=== PATIENT | male | born 1965 | race American Indian/Alaskan Native ===

== ENCOUNTER 2017-10-11 18:42 | Inpatient (IN) | payer OTHER ==
[2017-10-11] MEDS ORDERED: NACL 0.9% 1000 ML 1,000 ML IV ONE (20:42)
[2017-10-11 21:59] LABS: Hemoglobin 15.2 gm/dl (10.1-14.3); Mean Corpuscular HGB Conc 35 % (30-34); Mean Corpuscular Volume 73 fl (79-97); Platelet Count 142 K/mm3 (140-440); Red Cell Distribution Width 15.9 % (13.2-15.2)
[2017-10-11 22:02] LABS: Mean Corpuscular Hemoglobin 25 pg (28-32)
[2017-10-11 22:22] LABS: Alanine Aminotransferase 28 units/L (7-56); Albumin 3.5 g/dL (3.9-5); Bilirubin,Direct < 0.2 mg/dL (0-0.2)
--- NOTE | 2017-10-11 22:23 | Emergency Department Report ---
- General Chief Complaint: Dyspnea/Respdistress Stated Complaint: PNEUMONIA Time Seen by Provider: 10/11/17 20:35 Source: EMS Mode of arrival: Stretcher Limitations: No Limitations - History of Present Illness Initial Comments: 52 year old male with a past medical history of tobacco use (denies a history of hypertension, GERD, or diabetes) presents to the hospital, a [place] outpatient clinic with a diagnosis of bilateral pneumonia and hyponatremia. Patient has been sick for the past 4 days. He's been experiencing cough is mostly dry, nausea, diarrhea, any fever at home of 100.2. Intermittent shortness of breath for the past 2 days reported. Patient was seen at a outpatient [place] clinic prior to arrival. He has a chest x-ray PA and lateral with an official read of bilateral pneumonia. Lab work was significant for hyponatremia with a sodium of 125, potassium 3.5, chloride 95, CO2 19, glucose 152, creatinine 1.3, BUN 24, calcium 8.7. Patient's ABC callus 7.8, hemoglobin 16.7. The troponin of 0.040 with a normal value being less than 0.04. Patient does complain of intermittent mid chest pain that occurs even when he is not coughing and is described as aching. Patient has had frequent episodes of diarrhea in the ED. Prior to arrival patient received Levaquin 750 mg IV, Tylenol, Zofran, and 1 L of Lactated Ringer's. EKG shows sinus tachycardia rate [address] elevation or T-wave inversions. - Related Data Home Medications Medication Instructions Recorded Confirmed Last Taken No Known Home Medications [No 10/11/17 10/11/17 Unknown Reported Home Medications] Allergies Allergy/AdvReac Type Severity Reaction Status Date / Time shrimp Allergy Unknown Verified 10/11/17 20:25 lisinopril AdvReac Unknown Verified 10/11/17 20:25 ED Review of Systems ROS: Stated complaint: PNEUMONIA Other details as noted in HPI Comment: All other systems reviewed and negative Other: Constitutional: as per hpi Eyes: No eye pain visual changes or discharge ENT: No ear pain or throat pain Neck: Denies pain Respiratory: as per hpi Cardiovascular: Denies chest pain, palpitations, syncope GI: Denies abdominal pain : Denies dysuria Musculoskeletal: Denies back pain, joint swelling Skin: Denies rash, lesions, erythema Neurologic: Denies headache, numbness, weakness Psychiatric: Denies suicidal ideation, hallucinations ED Past Medical Hx - Past Medical History Previous Medical History?: Yes Hx Hypertension: No (no resolved) Hx Diabetes: No (prediabetes now resolved) Hx GERD: No (resolved) - Surgical History Past Surgical History?: No - Social History Smoking Status: Never Smoker - Medications Home Medications: Home Medications Medication Instructions Recorded Confirmed Last Taken Type No Known Home Medications [No 10/11/17 10/11/17 Unknown History Reported Home Medications] ED Physical Exam - General Limitations: No Limitations - Other Other exam information: General: No limitations, patient is alert in no acute distress Head exam: Atraumatic, normocephalic Eyes exam: Normal appearance ENT: Moist mucous membrane Neck exam: Normal inspection, full range of motion, no meningismus nontender Respiratory exam: Mild bibasilar crackles, no wheezes, rales, or tachypnea Cardiovascular: Normal rate and rhythm, normal heart sounds Abdomen: Soft, nondistended, and nontender, with normal bowel sounds, no rebound, or guarding Extremity: Full range of motion normal inspection no deformity Back: Normal Inspection, full range of motion, no tenderness Neurologic: Alert, oriented x3, cranial nerves intact, no motor or sensory deficit Psychiatric: normal affect, normal mood Skin: Warm, dry, intact ED Course Vital Signs 10/11/17 10/11/17 10/11/17 20:14 20:20 22:07 Temperature 99.3 F 99.8 F H Pulse Rate 103 H 103 H 105 H Respiratory 22 18 Rate Blood Pressure 138/88 Blood Pressure 138/88 118/74 [Right] O2 Sat by Pulse 90 90 90 Oximetry - Reevaluation(s) Reevaluation #1: 10/11/17 22:43 Patient requires supplemental oxygenation for resting hypoxia - Consultations Consultation #1: 10/11/17 22:43 Case discussed with [place] physician Dr. Hunter approved admission here to the hospital ED Medical Decision Making - Lab Data Result diagrams: 10/11/17 21:30 10/11/17 21:30 Lab Results 10/11/17 10/11/17 10/11/17 Range/Units 21:30 21:30 21:30 WBC 5.5 (4.5-11.0) K/mm3 RBC 6.00 H (3.65-5.03) M/mm3 Hgb 15.2 H (10.1-14.3) gm/dl Hct 44.0 H (30.3-42.9) % MCV 73 L (79-97) fl MCH 25 L (28-32) pg MCHC 35 H (30-34) % RDW 15.9 H (13.2-15.2) % Plt Count 142 (140-440) K/mm3 Sodium 127 L (137-145) mmol/L Potassium 3.9 (3.6-5.0) mmol/L Chloride 91.4 L (98-107) mmol/L Carbon Dioxide 19 L (22-30) mmol/L Anion Gap 21 mmol/L BUN 26 H (7-17) mg/dL Creatinine 1.3 H (0.7-1.2) mg/dL Estimated GFR 52 ml/min BUN/Creatinine Ratio 20 % Glucose 110 H (65-100) mg/dL Lactic Acid 1.70 (0.7-2.0) mmol/L Calcium 8.0 L (8.4-10.2) mg/dL Magnesium (1.7-2.3) mg/dL Total Bilirubin (0.1-1.2) mg/dL Direct Bilirubin (0-0.2) mg/dL Indirect Bilirubin mg/dL AST (5-40) units/L ALT (7-56) units/L Alkaline Phosphatase (35-129) units/L Total Protein (6.3-8.2) g/dL Albumin (3.9-5) g/dL Albumin/Globulin Ratio % 10/11/17 Range/Units 21:30 WBC (4.5-11.0) K/mm3 RBC (3.65-5.03) M/mm3 Hgb (10.1-14.3) gm/dl Hct (30.3-42.9) % MCV (79-97) fl MCH (28-32) pg MCHC (30-34) % RDW (13.2-15.2) % Plt Count (140-440) K/mm3 Sodium (137-145) mmol/L Potassium (3.6-5.0) mmol/L Chloride (98-107) mmol/L Carbon Dioxide (22-30) mmol/L Anion Gap mmol/L BUN (7-17) mg/dL Creatinine (0.7-1.2) mg/dL Estimated GFR ml/min BUN/Creatinine Ratio % Glucose (65-100) mg/dL Lactic Acid (0.7-2.0) mmol/L Calcium (8.4-10.2) mg/dL Magnesium 1.90 (1.7-2.3) mg/dL Total Bilirubin 0.80 (0.1-1.2) mg/dL Direct Bilirubin < 0.2 (0-0.2) mg/dL Indirect Bilirubin 0.6 mg/dL AST 39 (5-40) units/L ALT 28 (7-56) units/L Alkaline Phosphatase 55 (35-129) units/L Total Protein 7.4 (6.3-8.2) g/dL Albumin 3.5 L (3.9-5) g/dL Albumin/Globulin Ratio 0.9 % - EKG Data -: EKG Interpreted by Me EKG shows normal: sinus rhythm (93), axis (58), QRS complexes (98), ST-T waves ( flat lat t waves) Rate: normal - Radiology Data Radiology results: image reviewed (read by me: cxr: b/l infiltrate) - Medical Decision Making bilateral pneumonia Mild hypoxia room air saturation 89- 90% Supplemental oxygen initiated Levaquin given prior to arrival Blood cultures pending Influenza neg Hyponatremia Some correction compared to initial sodium with after IV fluid Normal saline continued - Differential Diagnosis pneumonia, bronchitis, viral syndrome, influenza, RI Critical Care Time: No Critical care attestation.: If time is entered above; I have spent that time in minutes in the direct care of this critically ill patient, excluding procedure time. ED Disposition Clinical Impression: Bilateral pneumonia, Hyponatremia, Hypoxia, Acute diarrhea, Chest pain Disposition: OP ADMIT IP TO THIS HOSP Is pt being admited?: Yes Condition: Stable Time of Disposition: 22:44 (Dr Griffiths/hosp)
[2017-10-11] MEDS ORDERED: NORCO 5/325 PO ONE (22:28)
--- NOTE | 2017-10-11 22:33 | XRay Report ---
FINAL REPORT PROCEDURE: AP chest x-ray TECHNIQUE: Chest radiograph anteroposterior view. CPT 23084 HISTORY: cough, fever COMPARISON: No prior studies are available for comparison. FINDINGS: Heart: Magnified due to projection although appears to be normal size.. Mediastinum/Vessels: Normal. Lungs/Pleural space: There are patchy and strandy densities in the left lung base suggesting atelectasis or pneumonia. Ill-defined parenchymal density seen in the left midlung field projecting laterally as well as a small amount of patchy alveolar density lateral to the right hilum and in the right lateral costophrenic angle.. There appears to be a small calcified granuloma adjacent to the left lateral costophrenic angle. Bony thorax: No acute osseous abnormality. Life support devices: None. IMPRESSION: Alveolar densities visualized bilaterally suggesting multifocal infiltrates. No effusions are identified. Follow-up chest x-ray recommended to ensure these resolve and there are no underlying pulmonary nodules or masses..
[2017-10-11] MEDS ORDERED: PROVENTIL IH PRN (23:38)
[2017-10-11] MEDS ORDERED: ZOFRAN IV PRN (23:38)
[2017-10-11] MEDS ORDERED: DULCOLAX PR PRN (23:38)
[2017-10-11] MEDS ORDERED: PERCOCET 5/325 PO PRN (23:38)
[2017-10-11] MEDS ORDERED: TYLENOL PO PRN (23:38)
[2017-10-11] MEDS ORDERED: MILK OF MAGNESIA PO PRN (23:38)
--- NOTE | 2017-10-11 23:40 | History and Physical Report ---
History of Present Illness Date of examination: 10/11/17 History of present illness: 52 year old man, tobacco abuse was sent to the emergency room from [place] for treatment of pneumonia. The patient states breath since Wednesday, no cough, admits to fever and chills. Also complained of chest pain across his chest, sharp, intermittent in nature lasted for 1 minute, intensity 5-10, no radiation , no exacerbating or relieving factors. stress test 3 years ago Review Of Systems: Constitutional: no weight loss Ears, eyes, nose, mouth and throat: no nasal congestion, no nasal discharge, no sinus pressure, blurry vision, diplopia Neck: No neck pain or rigidity. Cardiovascular: No palpitations Respiratory: + shortness of breath, cough Gastrointestinal: No abdominal pain, hematochezia Genitourinary : no dysuria, frequency , hematuria Musculoskeletal: no muscle ache Integumentary: no rash, no pruritis Neurological: no parathesias, focal weakness Endocrine: no cold or heat intolerance, no polyuria or polydipsia Hematologic/Lymphatic: no easy bruising, no easy bleeding, no gland swelling Allergic/Immunologic: no urticaria, no angioedema. PAST MEDICAL HISTORY:none PAST SURGICAL HISTORY:hernia repair FAMILY HISTORY:hypertension SOCIAL HISTORY: Smokes a pack a day, social alcohol no drugs Medications and Allergies Allergies Allergy/AdvReac Type Severity Reaction Status Date / Time shrimp Allergy Unknown Verified 10/11/17 20:25 lisinopril AdvReac Unknown Verified 10/11/17 20:25 Home Medications Medication Instructions Recorded Confirmed Last Taken Type No Known Home Medications [No 10/11/17 10/11/17 Unknown History Reported Home Medications] Exam - Physical Exam Narrative exam: Gen. appearance: Patient lying in bed in no acute distress HEENT: Normocephalic/atraumatic, pupils equal round reactive to light, extra occular movement intact, no scleral icterus, no JVD or thyromegaly or nodule, neck is supple, mucous membrane moist, no erythema or exudate Heart: S1-S2, regular rate and rhythm Lungs: Crackles bilateral breathing comfortable Abdomen: Positive bowel sounds, nontender, nondistended, no organomegaly Extremities: No edema, cyanosis, clubbing Neuro:: Oriented 3 , cranial nerves II-12 intact, speech, motor intact Skin: No rash, nodules, warm dry - Constitutional Vitals: Temp Pulse Resp BP Pulse Ox 99.8 F H 105 H 18 118/74 90 10/11/17 22:07 10/11/17 22:07 10/11/17 22:07 10/11/17 22:07 10/11/17 22:07 Results - Labs CBC & Chem 7: 10/11/17 21:30 10/11/17 21:30 Labs: Abnormal lab results 10/11/17 10/11/17 10/11/17 Range/Units 21:30 21:30 21:30 RBC 6.00 H (3.65-5.03) M/mm3 Hgb 15.2 H (10.1-14.3) gm/dl Hct 44.0 H (30.3-42.9) % MCV 73 L (79-97) fl MCH 25 L (28-32) pg MCHC 35 H (30-34) % RDW 15.9 H (13.2-15.2) % Sodium 127 L (137-145) mmol/L Chloride 91.4 L (98-107) mmol/L Carbon Dioxide 19 L (22-30) mmol/L BUN 26 H (7-17) mg/dL Creatinine 1.3 H (0.7-1.2) mg/dL Glucose 110 H (65-100) mg/dL Calcium 8.0 L (8.4-10.2) mg/dL Albumin 3.5 L (3.9-5) g/dL - Imaging and Cardiology EKG: image reviewed Chest x-ray: image reviewed Assessment and Plan Assessment Bilateral community-acquired pneumonia Renal insufficiency Plan Admit to medicine Start IV Levaquin, follow cultures Start IV fluids, follow kidney function DVT prophalaxis
[2017-10-12] MEDS ORDERED: MOTRIN PO ONE (00:25)
[2017-10-12 00:31] LABS: Band Neutrophils # (Manual) 0.9 K/mm3; Basophils % (Manual) 0 % (0.0-1.8); Eosinophils % (Manual) 0 % (0.0-4.3); Total Cells Counted 100
[2017-10-12 00:32] LABS: Hypochromasia 1+
[2017-10-12] MEDS ORDERED: MOTRIN ONE (01:16)
[2017-10-12] MEDS ORDERED: PNEUMOVAX 23 IM ONE ×3 (05:09→18:00)
[2017-10-12 05:49] LABS: Basophils % (Auto) 0.3 % (0.0-1.8); Eosinophils % (Auto) 0.1 % (0.0-4.3); Hematocrit 42.3 % (30.3-42.9); Hemoglobin 14.6 gm/dl (10.1-14.3); Mean Corpuscular HGB Conc 35 % (30-34); Mean Corpuscular Volume 75 fl (79-97); Monocytes # (Auto) 0.2 K/mm3 (0.0-0.8); Platelet Count 128 K/mm3 (140-440); Red Blood Count 5.67 M/mm3 (3.65-5.03); Red Cell Distribution Width 15.7 % (13.2-15.2)
[2017-10-12 06:00] LABS: Mean Corpuscular Hemoglobin 26 pg (28-32)
[2017-10-12 08:18] LABS: Calcium 7.9 mg/dL (8.4-10.2)
[2017-10-12] MEDS ORDERED: NACL 0.9% 1000 ML 1,000 ML IV ONE (10:00)
[2017-10-12] MEDS ORDERED: LOVENOX SUB-Q SCH ×2 (10:00)
[2017-10-12] MEDS: LEVAQUIN 750MG/150ML 750 MG/150 ML BAG IV SCH (13:46)
--- NOTE | 2017-10-12 17:12 | Progress Note ---
Assessment and Plan Assessment and plan: Extrapulated from the ER notes and the patient. Patient to continue 52 year old male with a past medical history of tobacco use (denies a history of hypertension, GERD, or diabetes) presents to the hospital, a [place] outpatient clinic with a diagnosis of bilateral pneumonia and hyponatremia. Patient has been sick for the past 4 days. He's been experiencing cough is mostly dry, nausea, diarrhea, any fever at home of 100.2. Intermittent shortness of breath for the past 2 days reported. Patient was seen at a outpatient [place] clinic prior to arrival. He has a chest x-ray PA and lateral with an official read of bilateral pneumonia. Lab work was significant for hyponatremia with a sodium of 125, potassium 3.5, chloride 95, CO2 19, glucose 152, creatinine 1.3, BUN 24 , calcium 8.7. Patient's ABC callus 7.8, hemoglobin 16.7. The troponin of 0.040 with a normal value being less than 0.04. Patient did complain of intermittent mid chest pain that occurs even when he is not coughing and is described as aching. Patient has had frequent episodes of diarrhea in the ED. no EKG changes noted in the ER Sepsis present on admission * Continue antibiotic therapy, fluids. Cultures revealed no growth at this time. Bilateral pneumonia rule possible secondary to gram-negative source * As noted above in addition we'll rule out influenza * Check urine Legionella antigen * We'll check strep antigen Acute kidney injury likely secondary to vasomotor nephropathy * Continue IV fluids avoid nephrotoxic medications Transient hypo-tension * Likely secondary to dehydration, significant amount of diarrhea. Diarrhea has resolved Transient loose bowel * No evidence or suspicion of C. difficile of this time. If recurrence will check for C. difficile Discussed plan of care with [facility] physicians DVT and GI prophylaxis Plan of care discussed in detail with the patient History Interval history: Patient seen and examined this morning with no active distress reports still persistent shortness of breath with exertion. Reports improvement in headache. No blurry vision no fever noted. Hospitalist Physical - Physical exam Narrative exam: VITAL SIGNS: Reviewed. GENERAL: The patient appeared well nourished and normally developed. Vital signs as documented. HEAD: No signs of head trauma. EYES: Pupils are equal. Extraocular motions intact. EARS: Hearing grossly intact. MOUTH: Oropharynx is normal. NECK: No adenopathy, no JVD. CHEST: Chest with bibasilar crackles sounds bilaterally. No wheezes, rales, or rhonchi. CARDIAC: Regular rate and rhythm. S1 and S2, without murmurs, gallops, or rubs. VASCULAR: No Edema. Peripheral pulses normal and equal in all extremities. ABDOMEN: Soft, without detectable tenderness. No sign of distention. No rebound or guarding, and no masses palpated. Bowel Sounds normal. MUSCULOSKELETAL: Good range of motion of all major joints. Extremities without clubbing, cyanosis or edema. NEUROLOGIC EXAM: Alert and oriented x 3. No focal sensory or strength deficits. Speech normal. Follows commands. PSYCHIATRIC: Mood normal. SKIN: No rash or lesions. - Constitutional Vitals: Temp Pulse Resp BP Pulse Ox 99.0 F 78 24 136/76 98 10/12/17 03:11 10/12/17 16:00 10/12/17 16:00 10/12/17 16:00 10/12/17 16:00 Results - Labs CBC & Chem 7: 10/12/17 05:36 10/12/17 05:36 Labs: Laboratory Last Values WBC 4.9 K/mm3 (4.5-11.0) 10/12/17 05:36 RBC 5.67 M/mm3 (3.65-5.03) H 10/12/17 05:36 Hgb 14.6 gm/dl (10.1-14.3) H 10/12/17 05:36 Hct 42.3 % (30.3-42.9) 10/12/17 05:36 MCV 75 fl (79-97) L 10/12/17 05:36 MCH 26 pg (28-32) L 10/12/17 05:36 MCHC 35 % (30-34) H 10/12/17 05:36 RDW 15.7 % (13.2-15.2) H 10/12/17 05:36 Plt Count 128 K/mm3 (140-440) L 10/12/17 05:36 Lymph % (Auto) 21.0 % (13.4-35.0) 10/12/17 05:36 Wells % (Auto) 5.0 % (0.0-7.3) 10/12/17 05:36 Eos % (Auto) 0.1 % (0.0-4.3) 10/12/17 05:36 Baso % (Auto) 0.3 % (0.0-1.8) 10/12/17 05:36 Lymph # 1.0 K/mm3 (1.2-5.4) L 10/12/17 05:36 Wells # 0.2 K/mm3 (0.0-0.8) 10/12/17 05:36 Eos # 0.0 K/mm3 (0.0-0.4) 10/12/17 05:36 Baso # 0.0 K/mm3 (0.0-0.1) 10/12/17 05:36 Add Manual Diff Complete 10/11/17 21:30 Total Counted 100 10/11/17 21:30 Seg Neutrophils % 73.6 % (40.0-70.0) H 10/12/17 05:36 Seg Neuts % (Manual) 72.0 % (40.0-70.0) H 10/11/17 21:30 Band Neutrophils % 17.0 % 10/11/17 21:30 Lymphocytes % (Manual) 9.0 % (13.4-35.0) L 10/11/17 21:30 Reactive Lymphs % (Man) 0 % 10/11/17 21:30 Monocytes % (Manual) 2.0 % (0.0-7.3) 10/11/17 21:30 Eosinophils % (Manual) 0 % (0.0-4.3) 10/11/17 21:30 Basophils % (Manual) 0 % (0.0-1.8) 10/11/17 21:30 Metamyelocytes % 0 % 10/11/17 21:30 Myelocytes % 0 % 10/11/17 21:30 Promyelocytes % 0 % 10/11/17 21:30 Blast Cells % 0 % 10/11/17 21:30 Nucleated RBC % Not Reportable 10/11/17 21:30 Seg Neutrophils # 3.6 K/mm3 (1.8-7.7) 10/12/17 05:36 Seg Neutrophils # Man 4.0 K/mm3 (1.8-7.7) 10/11/17 21:30 Band Neutrophils # 0.9 K/mm3 10/11/17 21:30 Lymphocytes # (Manual) 0.5 K/mm3 (1.2-5.4) L 10/11/17 21:30 Abs React Lymphs (Man) 0.0 K/mm3 10/11/17 21:30 Monocytes # (Manual) 0.1 K/mm3 (0.0-0.8) 10/11/17 21:30 Eosinophils # (Manual) 0.0 K/mm3 (0.0-0.4) 10/11/17 21:30 Basophils # (Manual) 0.0 K/mm3 (0.0-0.1) 10/11/17 21:30 Metamyelocytes # 0.0 K/mm3 10/11/17 21:30 Myelocytes # 0.0 K/mm3 10/11/17 21:30 Promyelocytes # 0.0 K/mm3 10/11/17 21:30 Blast Cells # 0.0 K/mm3 10/11/17 21:30 WBC Morphology Not Reportable 10/11/17 21:30 Hypersegmented Neuts Not Reportable 10/11/17 21:30 Hyposegmented Neuts Not Reportable 10/11/17 21:30 Hypogranular Neuts Not Reportable 10/11/17 21:30 Smudge Cells Not Reportable 10/11/17 21:30 Toxic Granulation Not Reportable 10/11/17 21:30 Toxic Vacuolation Not Reportable 10/11/17 21:30 Dohle Bodies Not Reportable 10/11/17 21:30 Pelger-Huet Anomaly Not Reportable 10/11/17 21:30 Laura Rods Not Reportable 10/11/17 21:30 Platelet Estimate Appears normal 10/11/17 21:30 Clumped Platelets Not Reportable 10/11/17 21:30 Plt Clumps, EDTA Not Reportable 10/11/17 21:30 Large Platelets Not Reportable 10/11/17 21:30 Giant Platelets Not Reportable 10/11/17 21:30 Platelet Satelliting Not Reportable 10/11/17 21:30 Plt Morphology Comment Not Reportable 10/11/17 21:30 RBC Morphology Not Reportable 10/11/17 21:30 Dimorphic RBCs Not Reportable 10/11/17 21:30 Polychromasia Not Reportable 10/11/17 21:30 Hypochromasia 1+ 10/11/17 21:30 Poikilocytosis Not Reportable 10/11/17 21:30 Anisocytosis Not Reportable 10/11/17 21:30 Microcytosis Not Reportable 10/11/17 21:30 Macrocytosis Not Reportable 10/11/17 21:30 Spherocytes Not Reportable 10/11/17 21:30 Pappenheimer Bodies Not Reportable 10/11/17 21:30 Sickle Cells Not Reportable 10/11/17 21:30 Target Cells Not Reportable 10/11/17 21:30 Tear Drop Cells Not Reportable 10/11/17 21:30 Ovalocytes Not Reportable 10/11/17 21:30 Helmet Cells Not Reportable 10/11/17 21:30 [place] Bodies Not Reportable 10/11/17 21:30 [place] Rings Not Reportable 10/11/17 21:30 [place] Cells Not Reportable 10/11/17 21:30 Bite Cells Not Reportable 10/11/17 21:30 Crenated Cell Not Reportable 10/11/17 21:30 Elliptocytes Not Reportable 10/11/17 21:30 Acanthocytes (Spur) Not Reportable 10/11/17 21:30 Rouleaux Not Reportable 10/11/17 21:30 Hemoglobin C Crystals Not Reportable 10/11/17 21:30 Schistocytes Not Reportable 10/11/17 21:30 Malaria parasites Not Reportable 10/11/17 21:30 [place] Bodies Not Reportable 10/11/17 21:30 Hem Pathologist Commnt No 10/11/17 21:30 Sodium 132 mmol/L (137-145) L 10/12/17 05:36 Potassium 4.0 mmol/L (3.6-5.0) 10/12/17 05:36 Chloride 95.2 mmol/L (98-107) L 10/12/17 05:36 Carbon Dioxide 20 mmol/L (22-30) L 10/12/17 05:36 Anion Gap 21 mmol/L 10/12/17 05:36 BUN 28 mg/dL (7-17) H 10/12/17 05:36 Creatinine 1.4 mg/dL (0.7-1.2) H 10/12/17 05:36 Estimated GFR 47 ml/min 10/12/17 05:36 BUN/Creatinine Ratio 20 % 10/12/17 05:36 Glucose 103 mg/dL (65-100) H 10/12/17 05:36 Lactic Acid 1.70 mmol/L (0.7-2.0) 10/11/17 21:30 Calcium 7.9 mg/dL (8.4-10.2) L 10/12/17 05:36 Magnesium 1.90 mg/dL (1.7-2.3) 10/11/17 21:30 Total Bilirubin 0.80 mg/dL (0.1-1.2) 10/11/17 21:30 Direct Bilirubin < 0.2 mg/dL (0-0.2) 10/11/17 21:30 Indirect Bilirubin 0.6 mg/dL 10/11/17 21:30 AST 39 units/L (5-40) 10/11/17 21:30 ALT 28 units/L (7-56) 10/11/17 21:30 Alkaline Phosphatase 55 units/L (35-129) 10/11/17 21:30 Troponin T < 0.010 ng/mL (0.00-0.029) 10/12/17 00:49 C-Reactive Protein 27.20 mg/dL (0.00-1.30) H 10/12/17 05:36 Total Protein 7.4 g/dL (6.3-8.2) 10/11/17 21:30 Albumin 3.5 g/dL (3.9-5) L 10/11/17 21:30 Albumin/Globulin Ratio 0.9 % 10/11/17 21:30 - Imaging and Cardiology Chest x-ray: image reviewed (multifocal infiltrates)
[2017-10-12] MEDS: NACL 0.9% 1000 ML 1,000 ML IV SCH (19:15)
[2017-10-13] MEDS: NACL 0.9% 1000 ML 1,000 ML IV SCH ×2 (06:40→21:38)
[2017-10-13 08:45] LABS: Hematocrit 38.5 % (35.5-45.6); Mean Corpuscular HGB Conc 34 % (32-34); Mean Corpuscular Volume 73 fl (84-94); Platelet Count 143 K/mm3 (140-440); Red Blood Count 5.25 M/mm3 (3.65-5.03)
[2017-10-13 08:47] LABS: Mean Corpuscular Hemoglobin 25 pg (28-32)
[2017-10-13 08:48] LABS: BUN/Creatinine Ratio 19; Blood Urea Nitrogen 17 mg/dL (9-20); Hemolysis Index 0
[2017-10-13] MEDS: LEVAQUIN 750MG/150ML 750 MG/150 ML BAG IV SCH (09:59)
[2017-10-13] MEDS ORDERED: PNEUMOVAX 23 IM ONE (12:00)
--- NOTE | 2017-10-13 22:16 | Progress Note ---
Assessment and Plan Assessment and plan: Extrapulated from the ER notes and the patient. Patient to continue 52 year old male with a past medical history of tobacco use (denies a history of hypertension, GERD, or diabetes) presents to the hospital, a [place] outpatient clinic with a diagnosis of bilateral pneumonia and hyponatremia. Patient has been sick for the past 4 days. He's been experiencing cough is mostly dry, nausea, diarrhea, any fever at home of 100.2. Intermittent shortness of breath for the past 2 days reported. Patient was seen at a outpatient [place] clinic prior to arrival. He has a chest x-ray PA and lateral with an official read of bilateral pneumonia. Lab work was significant for hyponatremia with a sodium of 125, potassium 3.5, chloride 95, CO2 19, glucose 152, creatinine 1.3, BUN 24 , calcium 8.7. Patient's ABC callus 7.8, hemoglobin 16.7. The troponin of 0.040 with a normal value being less than 0.04. Patient did complain of intermittent mid chest pain that occurs even when he is not coughing and is described as aching. Patient has had frequent episodes of diarrhea in the ED. no EKG changes noted in the ER Sepsis present on admission * Continue antibiotic therapy, fluids. Cultures revealed no growth at this time. Bilateral pneumonia rule possible secondary to gram-negative source * Influenza negative * Started on abx based and will monitor improvement * Patient understands to have repeat cxr in 3 weeks. * Check urine Legionella antigen * We'll check strep antigen Acute kidney injury likely secondary to vasomotor nephropathy * Continue IV fluids avoid nephrotoxic medications Transient hypo-tension * Likely secondary to dehydration, significant amount of diarrhea. Diarrhea has resolved Transient loose bowel * No further diarrhea Discussed plan of care with [place] physicians DVT and GI prophylaxis Plan of care discussed in detail with the patient Encourage ambulation History Interval history: Patient seen and examined this morning, reports shortness of breath while eating. new for the patient. no chest pain, nausea or vomiting. Hospitalist Physical - Physical exam Narrative exam: VITAL SIGNS: Reviewed. GENERAL: The patient appeared well nourished and normally developed. Vital signs as documented. HEAD: No signs of head trauma. EYES: Pupils are equal. Extraocular motions intact. EARS: Hearing grossly intact. MOUTH: Oropharynx is normal. NECK: No adenopathy, no JVD. CHEST: Chest with bibasilar crackles sounds bilaterally. No wheezes, rales, or rhonchi. CARDIAC: Regular rate and rhythm. S1 and S2, without murmurs, gallops, or rubs. VASCULAR: No Edema. Peripheral pulses normal and equal in all extremities. ABDOMEN: Soft, without detectable tenderness. No sign of distention. No rebound or guarding, and no masses palpated. Bowel Sounds normal. MUSCULOSKELETAL: Good range of motion of all major joints. Extremities without clubbing, cyanosis or edema. NEUROLOGIC EXAM: Alert and oriented x 3. No focal sensory or strength deficits. Speech normal. Follows commands. PSYCHIATRIC: Mood normal. SKIN: No rash or lesions. - Constitutional Vitals: Temp Pulse Resp BP Pulse Ox 97.6 F 86 20 149/82 96 10/13/17 16:06 10/13/17 16:06 10/13/17 16:06 10/13/17 16:06 10/13/17 16:06 Results - Labs CBC & Chem 7: 10/13/17 07:19 10/13/17 07:19 Labs: Laboratory Last Values WBC 4.3 K/mm3 (4.5-11.0) L 10/13/17 07:19 RBC 5.25 M/mm3 (3.65-5.03) H 10/13/17 07:19 Hgb 13.0 gm/dl (11.8-15.2) 10/13/17 07:19 Hct 38.5 % (35.5-45.6) 10/13/17 07:19 MCV 73 fl (84-94) L 10/13/17 07:19 MCH 25 pg (28-32) L 10/13/17 07:19 MCHC 34 % (32-34) 10/13/17 07:19 RDW 16.0 % (13.2-15.2) H 10/13/17 07:19 Plt Count 143 K/mm3 (140-440) 10/13/17 07:19 Lymph % (Auto) 21.0 % (13.4-35.0) 10/12/17 05:36 Kleberg % (Auto) 5.0 % (0.0-7.3) 10/12/17 05:36 Eos % (Auto) 0.1 % (0.0-4.3) 10/12/17 05:36 Baso % (Auto) 0.3 % (0.0-1.8) 10/12/17 05:36 Lymph # 1.0 K/mm3 (1.2-5.4) L 10/12/17 05:36 [place]berg # 0.2 K/mm3 (0.0-0.8) 10/12/17 05:36 Eos # 0.0 K/mm3 (0.0-0.4) 10/12/17 05:36 Baso # 0.0 K/mm3 (0.0-0.1) 10/12/17 05:36 Add Manual Diff Complete 10/11/17 21:30 Total Counted 100 10/11/17 21:30 Seg Neutrophils % 73.6 % (40.0-70.0) H 10/12/17 05:36 Seg Neuts % (Manual) 72.0 % (40.0-70.0) H 10/11/17 21:30 Band Neutrophils % 17.0 % 10/11/17 21:30 Lymphocytes % (Manual) 9.0 % (13.4-35.0) L 10/11/17 21:30 Reactive Lymphs % (Man) 0 % 10/11/17 21:30 Monocytes % (Manual) 2.0 % (0.0-7.3) 10/11/17 21:30 Eosinophils % (Manual) 0 % (0.0-4.3) 10/11/17 21:30 Basophils % (Manual) 0 % (0.0-1.8) 10/11/17 21:30 Metamyelocytes % 0 % 10/11/17 21:30 Myelocytes % 0 % 10/11/17 21:30 Promyelocytes % 0 % 10/11/17 21:30 Blast Cells % 0 % 10/11/17 21:30 Nucleated RBC % Not Reportable 10/11/17 21:30 Seg Neutrophils # 3.6 K/mm3 (1.8-7.7) 10/12/17 05:36 Seg Neutrophils # Man 4.0 K/mm3 (1.8-7.7) 10/11/17 21:30 Band Neutrophils # 0.9 K/mm3 10/11/17 21:30 Lymphocytes # (Manual) 0.5 K/mm3 (1.2-5.4) L 10/11/17 21:30 Abs React Lymphs (Man) 0.0 K/mm3 10/11/17 21:30 Monocytes # (Manual) 0.1 K/mm3 (0.0-0.8) 10/11/17 21:30 Eosinophils # (Manual) 0.0 K/mm3 (0.0-0.4) 10/11/17 21:30 Basophils # (Manual) 0.0 K/mm3 (0.0-0.1) 10/11/17 21:30 Metamyelocytes # 0.0 K/mm3 10/11/17 21:30 Myelocytes # 0.0 K/mm3 10/11/17 21:30 Promyelocytes # 0.0 K/mm3 10/11/17 21:30 Blast Cells # 0.0 K/mm3 10/11/17 21:30 WBC Morphology Not Reportable 10/11/17 21:30 Hypersegmented Neuts Not Reportable 10/11/17 21:30 Hyposegmented Neuts Not Reportable 10/11/17 21:30 Hypogranular Neuts Not Reportable 10/11/17 21:30 Smudge Cells Not Reportable 10/11/17 21:30 Toxic Granulation Not Reportable 10/11/17 21:30 Toxic Vacuolation Not Reportable 10/11/17 21:30 Dohle Bodies Not Reportable 10/11/17 21:30 Pelger-Huet Anomaly Not Reportable 10/11/17 21:30 Laura Rods Not Reportable 10/11/17 21:30 Platelet Estimate Appears normal 10/11/17 21:30 Clumped Platelets Not Reportable 10/11/17 21:30 Plt Clumps, EDTA Not Reportable 10/11/17 21:30 Large Platelets Not Reportable 10/11/17 21:30 Giant Platelets Not Reportable 10/11/17 21:30 Platelet Satelliting Not Reportable 10/11/17 21:30 Plt Morphology Comment Not Reportable 10/11/17 21:30 RBC Morphology Not Reportable 10/11/17 21:30 Dimorphic RBCs Not Reportable 10/11/17 21:30 Polychromasia Not Reportable 10/11/17 21:30 Hypochromasia 1+ 10/11/17 21:30 Poikilocytosis Not Reportable 10/11/17 21:30 Anisocytosis Not Reportable 10/11/17 21:30 Microcytosis Not Reportable 10/11/17 21:30 Macrocytosis Not Reportable 10/11/17 21:30 Spherocytes Not Reportable 10/11/17 21:30 Pappenheimer Bodies Not Reportable 10/11/17 21:30 Sickle Cells Not Reportable 10/11/17 21:30 Target Cells Not Reportable 10/11/17 21:30 Tear Drop Cells Not Reportable 10/11/17 21:30 Ovalocytes Not Reportable 10/11/17 21:30 Helmet Cells Not Reportable 10/11/17 21:30 [place] Bodies Not Reportable 10/11/17 21:30 [place] Rings Not Reportable 10/11/17 21:30 [place] Cells Not Reportable 10/11/17 21:30 Bite Cells Not Reportable 10/11/17 21:30 Crenated Cell Not Reportable 10/11/17 21:30 Elliptocytes Not Reportable 10/11/17 21:30 Acanthocytes (Spur) Not Reportable 10/11/17 21:30 Rouleaux Not Reportable 10/11/17 21:30 Hemoglobin C Crystals Not Reportable 10/11/17 21:30 Schistocytes Not Reportable 10/11/17 21:30 Malaria parasites Not Reportable 10/11/17 21:30 [place] Bodies Not Reportable 10/11/17 21:30 Hem Pathologist Commnt No 10/11/17 21:30 Sodium 136 mmol/L (137-145) L 10/13/17 07:19 Potassium 3.6 mmol/L (3.6-5.0) 10/13/17 07:19 Chloride 99.8 mmol/L (98-107) 10/13/17 07:19 Carbon Dioxide 22 mmol/L (22-30) 10/13/17 07:19 Anion Gap 18 mmol/L 10/13/17 07:19 BUN 17 mg/dL (9-20) 10/13/17 07:19 Creatinine 0.9 mg/dL (0.8-1.5) 10/13/17 07:19 Estimated GFR > 60 ml/min 10/13/17 07:19 BUN/Creatinine Ratio 19 % 10/13/17 07:19 Glucose 106 mg/dL (75-100) H 10/13/17 07:19 Lactic Acid 1.70 mmol/L (0.7-2.0) 10/11/17 21:30 Calcium 8.0 mg/dL (8.4-10.2) L 10/13/17 07:19 Magnesium 1.90 mg/dL (1.7-2.3) 10/11/17 21:30 Total Bilirubin 0.80 mg/dL (0.1-1.2) 10/11/17 21:30 Direct Bilirubin < 0.2 mg/dL (0-0.2) 10/11/17 21:30 Indirect Bilirubin 0.6 mg/dL 10/11/17 21:30 AST 39 units/L (5-40) 10/11/17 21:30 ALT 28 units/L (7-56) 10/11/17 21:30 Alkaline Phosphatase 55 units/L (35-129) 10/11/17 21:30 Troponin T < 0.010 ng/mL (0.00-0.029) 10/12/17 00:49 C-Reactive Protein 27.20 mg/dL (0.00-1.30) H 10/12/17 05:36 Total Protein 7.4 g/dL (6.3-8.2) 10/11/17 21:30 Albumin 3.5 g/dL (3.9-5) L 10/11/17 21:30 Albumin/Globulin Ratio 0.9 % 10/11/17 21:30
[2017-10-14 08:18] VITALS: BP 151/93
[2017-10-14] MEDS: NACL 0.9% 1000 ML 1,000 ML IV SCH (10:12)
[2017-10-14] MEDS: LEVAQUIN 750MG/150ML 750 MG/150 ML BAG IV SCH (10:14)
--- NOTE | 2017-10-14 11:11 | Discharge Summary ---
Providers - Providers Date of Admission: 10/11/17 23:38 Attending physician: LEANDRA FRAUSTO MD Primary care physician: ADAN VASQUEZ Hospitalization Condition: Stable Hospital course: Patient to continue 52 year old male with a past medical history of tobacco use (denies a history of hypertension, GERD, or diabetes) presents to the hospital, a [place] outpatient clinic with a diagnosis of bilateral pneumonia and hyponatremia. Patient has been sick for the past 4 days. He's been experiencing cough is mostly dry, nausea, diarrhea, any fever at home of 100.2. Intermittent shortness of breath for the past 2 days reported. Patient was seen at a outpatient [place] clinic prior to arrival. He has a chest x-ray PA and lateral with an official read of bilateral pneumonia. Lab work was significant for hyponatremia with a sodium of 125, potassium 3.5, chloride 95, CO2 19, glucose 152, creatinine 1.3, BUN 24, calcium 8.7. Patient's ABC callus 7.8, hemoglobin 16.7. The troponin of 0.040 with a normal value being less than 0.04. Patient did complain of intermittent mid chest pain that occurs even when he is not coughing and is described as aching. Patient has had frequent episodes of diarrhea in the ED. no EKG changes noted in the ER Sepsis present on admission * Continue antibiotic therapy, fluids. Cultures revealed no growth at this time. Bilateral pneumonia rule possible secondary to gram-negative source * Influenza negative * Started on abx based and will monitor improvement * Patient understands to have repeat cxr in 3 weeks. * Check urine Legionella antigen * We'll check strep antigen Acute kidney injury likely secondary to vasomotor nephropathy * Continue IV fluids avoid nephrotoxic medications Transient hypo-tension * Likely secondary to dehydration, significant amount of diarrhea. Diarrhea has resolved Transient loose bowel * No further diarrhea Discussed plan of care with [place] physicians DVT and GI prophylaxis Plan of care discussed in detail with the patient Encourage ambulation Disposition: - TO HOME OR SELFCARE Time spent for discharge: 35 mins Core Measure Documentation - Palliative Care Palliative Care/ Comfort Measures: Not Applicable - Core Measures Any of the following diagnoses?: none - VTE Discharge Requirements Deep Vein Thrombosis/Pulmonary Embolism Present on Admission: No Exam - Physical Exam Narrative exam: VITAL SIGNS: Reviewed. GENERAL: The patient appeared well nourished and normally developed. Vital signs as documented. HEAD: No signs of head trauma. EYES: Pupils are equal. Extraocular motions intact. EARS: Hearing grossly intact. MOUTH: Oropharynx is normal. NECK: No adenopathy, no JVD. CHEST: Chest with bibasilar crackles sounds bilaterally. No wheezes, rales, or rhonchi. CARDIAC: Regular rate and rhythm. S1 and S2, without murmurs, gallops, or rubs. VASCULAR: No Edema. Peripheral pulses normal and equal in all extremities. ABDOMEN: Soft, without detectable tenderness. No sign of distention. No rebound or guarding, and no masses palpated. Bowel Sounds normal. MUSCULOSKELETAL: Good range of motion of all major joints. Extremities without clubbing, cyanosis or edema. NEUROLOGIC EXAM: Alert and oriented x 3. No focal sensory or strength deficits. Speech normal. Follows commands. PSYCHIATRIC: Mood normal. SKIN: No rash or lesions. - Constitutional Vitals: Temp Pulse Resp BP Pulse Ox 98.1 F 89 20 151/93 93 10/14/17 07:41 10/14/17 07:41 10/14/17 07:41 10/14/17 07:41 10/14/17 07:41 Plan Activity: advance as tolerated, fall precautions Diet: low fat Special Instructions: record daily weights, record daily BP diary, smoking cessation Follow up with: ADAN VASQUEZ MD [Primary Care Provider] - 3-5 Days Prescriptions: ALBUTEROL Inhaler [ProAir HFA Inhaler] 2 puff IH QID PRN #1 inhalation PRN Reason: Shortness Of Breath Levofloxacin [Levaquin] 750 mg PO QDAY #7 tablet
== END 2017-10-14 13:00 | disposition home or self-care (01) | DRG 871 ==
LOC: EDSEX → ED 18:42 → 4A 23:38 → 3A 10-12 14:16
PROVIDERS: ADMIT Internal Medicine; ATTEND Internal Medicine
PROC: 3E0234Z Introduction of Serum, Toxoid and Vaccine into Muscle, Percutaneous Approach (ICD-10-PCS; principal; 2017-10-13)
DX: A41.9 Sepsis, unspecified organism (principal); J18.9 Pneumonia, unspecified organism; N17.0 Acute kidney failure with tubular necrosis; E87.1 Hypo-osmolality and hyponatremia; R07.9 Chest pain, unspecified; E86.0 Dehydration; R09.02 Hypoxemia; F17.200 Nicotine dependence, unspecified, uncomplicated; Z82.49 Family history of ischemic heart disease and other diseases of the circulatory system; Z23 Encounter for immunization
CPT/HCPCS: 36415; 71045; 80048; 80074; 82140; 83735; 84484; 85007; 85025; 85027; 86060; 86140; 87040; 87400; 90732; 93005; 93010; 96374; J1956; J7030